=== PATIENT | female | born 1970 | race Caucasian/White ===

== ENCOUNTER 2022-02-20 05:22 | Inpatient (IN) | payer OTHER ==
[2022-02-12 14:59] LABS: BASOPHILS % (AUTO) 0.8 % (0-1); EOSINOPHILS # (AUTO) 0.2 X10'3 (0-0.9); EOSINOPHILS % (AUTO) 3.4 % (0-6); LYMPHOCYTES # (AUTO) 1.5 X10'3 (1.1-4.8); LYMPHOCYTES % (AUTO) 28.1 % (21-51); MEAN CORPUSCULAR HGB CONC 33.7 g/dL (33.0-36.5); MEAN PLATELET VOLUME 7.4 FL (7.4-10.4); MONOCYTES # (AUTO) 0.3 X10'3 (0-0.9); MONOCYTES % (AUTO) 6.4 % (2-12); NEUTROPHILS # (AUTO) 3.3 X10'3 (1.8-7.7); NEUTROPHILS % (AUTO) 61.3 % (42-75); PRE OP HEMATOCRIT 42.5 % (35.0-45.0); PRE OP HEMOGLOBIN 14.3 g/dL (12.0-16.0); PRE OP PLATELET COUNT 289 X10'3 (140-440); RED BLOOD COUNT 4.48 X10'6 (4.20-5.60); RED CELL DISTRIBUTION WIDTH 14.4 % (11.5-14.5)
[2022-02-12 15:06] LABS: CLARITY,URINE CLEAR (Clear); COLOR,URINE YELLOW (Yellow); GLUCOSE, URINE NEGATIVE (Neg); KETONES,URINE NEGATIVE (Neg); LEUKOCYTE ESTERASE ,URINE NEGATIVE (Neg); NITRITES, URINE NEGATIVE (Neg); OCCULT BLOOD,URINE NEGATIVE (Neg); PROTEIN,URINE NEGATIVE (Neg); UROBILINOGEN,URINE 0.2 E.U/dL (0.2-1.0)
[2022-02-12 15:07] LABS: UA COLLECTION TYPE CLN CATCH MIDSTREAM
[2022-02-12 15:13] LABS: ALBUMIN 3.8 G/DL (3.4-5.0); ALKALINE PHOSPHATASE 91 IU/L (46-116); BLOOD UREA NITROGEN 24 MG/DL (7-18); CALCIUM 9.3 MG/DL (8.5-10.1); CHLORIDE 103 MMOL/L (99-107); CREATININE 1.09 MG/DL (0.40-0.90); PRE OP ALT 35 U/L (30-65); PRE OP ANION GAP 9 (8-16); PRE OP AST 18 U/L (10-37); PRE OP BILIRUB, TOTAL 0.3 MG/DL (0.0-1.0); PRE OP GLUCOSE 102 MG/DL (70-104); PRE OP POTASSIUM 4.1 MMOL/L (3.4-5.1); PRE OP SODIUM 142 MMOL/L (135-145); TOTAL CARBON DIOXIDE 30.2 MMOL/L (24-32); TOTAL PROTEIN 7.6 G/DL (6.4-8.2); eGFR 53 ML/MIN
[~2022-02-20] VITALS: Ht 157.5 cm; Wt 97.0 kg
[2022-02-20] VITALS (22 sets, daily range): BP systolic 91–133; BP diastolic 42–87
[~2022-02-20 05:22] MED LIST: CETI-194 PO; DULO60CA59 PO; GABA300C PO; HYDR-3965 PO; LISI1TAB49 PO; ringers solution, lacted 1,000 ML IV SCH
[2022-02-20] MEDS ORDERED: vancomycin 1,500 MG in NS 300ml IV soln IV ONE (05:30)
[2022-02-20] MEDS ORDERED: ceFAZolin inj. 2,000 MG in dextrose 5%-water 100 ML IV ONE (05:30)
[2022-02-20] MEDS ORDERED: famotidine 20mg tablet PO ONE (05:30)
[2022-02-20] MEDS ORDERED: acetaminophen 325mg tablet PO ONE (05:30)
[2022-02-20] MEDS ORDERED: celeCOXIB 100mg capsule PO ONE (05:30)
[2022-02-20] MEDS ORDERED: oxyCODONE SR 10mg (sust. release) tab -2 tabs (20mg) PO ONE (05:30)
[2022-02-20] MEDS ORDERED: gabapentin 300mg capsule PO ONE (05:30)
[2022-02-20] MEDS ORDERED: metoclopramide 5 mg/ml inj IV ONE (05:30)
[2022-02-20] MEDS ORDERED: LIDOcaine 1% (10mg/ml) 2ml vial ONE (05:35)
[2022-02-20] MEDS ORDERED: tranexamic acid inj. 1,000 MG in normal saline 100ml IV soln 90 ML IV ONE (06:00)
[2022-02-20] MEDS ORDERED: HYDROmorphone 1 mg/ml syringe IV PRN (06:50)
[2022-02-20] MEDS ORDERED: bisacodyl 10mg suppository rectal RC PRN (06:50)
[2022-02-20] MEDS ORDERED: magnesium hydroxide 30ml (MOM) UD suspension PO PRN (06:50)
[2022-02-20] MEDS ORDERED: acetaminophen 325mg tablet PO PRN (06:50)
[2022-02-20] MEDS ORDERED: ondansetron/PF 4mg/2ml inj IV PRN ×2 (06:50→08:25)
[2022-02-20] MEDS ORDERED: naloxone 0.4 mg/ml inj IV PRN (06:50)
[2022-02-20] MEDS ORDERED: diphenhydrAMINE 25mg capsule PO PRN ×2 (06:50)
[2022-02-20] MEDS ORDERED: HYDROcodone/acetaminophen 10/325mg tab PO PRN (06:50)
[2022-02-20] MEDS ORDERED: HYDROmorphone inj. 0.5 MG/0.5 ML DISP.SYRIN IV PRN (06:50)
[2022-02-20] MEDS ORDERED: epiNEPHrine 1 mg/ml inj ONE (07:00)
[2022-02-20] MEDS ORDERED: ketorolac trometh. 30mg/ml inj. ONE (07:00)
[2022-02-20] MEDS ORDERED: ROPIVAcaine 0.5% (5mg/ml) 30ml vial ONE (07:01)
[2022-02-20] MEDS ORDERED: vancomycin 1,000mg inj ONE (07:01)
[2022-02-20] MEDS ORDERED: cloNIDine hcl/PF 100mcg/ml inj ONE (07:01)
[2022-02-20] MEDS ORDERED: fentaNYL/PF 50MCG/1 ML 2ML syringe ONE (07:07)
[2022-02-20] MEDS ORDERED: MIDAZolam 1mg/ml 10ml vial ONE (07:07)
[2022-02-20] MEDS ORDERED: multivitamins, therapeutics tablet PO SCH (08:00)
[2022-02-20] MEDS ORDERED: gabapentin 300mg capsule PO SCH (08:00)
[2022-02-20] MEDS ORDERED: ascorbic acid 500mg tablet PO SCH (08:00)
[2022-02-20] MEDS ORDERED: HYDROchlorothiazide 12.5mg capsule PO SCH (08:00)
[2022-02-20] MEDS ORDERED: lisinopril 10 MG tablet PO SCH (08:00)
[2022-02-20] MEDS ORDERED: cetirizine 10mg tablet PO SCH (08:00)
[2022-02-20] MEDS ORDERED: ePHEDrine 50MG/ML INJ. ONE (08:09)
[2022-02-20] MEDS ORDERED: morphine 4 MG/ML inj SYRINge IV PRN (08:25)
[2022-02-20] MEDS ORDERED: ringers solution, lacted 1,000 ML IV SCH (08:25)
[2022-02-20] MEDS ORDERED: proCHLORperazine 10 MG/2 ml inj IV PRN (08:25)
[2022-02-20] MEDS ORDERED: morphine 2 MG/ML inj. syringe IV PRN (08:25)
[2022-02-20] MEDS ORDERED: meperidine/PF 25mg/ml syringe IV PRN ×3 (08:25)
[2022-02-20] MEDS ORDERED: aspirin 325mg tablet PO SCH (08:30)
--- NOTE | 2022-02-20 08:41 | NUR ---
Received from OR via BED, accompanied by Anesthesiologist DR GREENFIELD and report given by Anesthesiologist AND CHAUFFEUR. PT DROWSY, DENIES PAIN, RIGHT HIP/UPPER THIGH W/STEVE DRAIN DRESSING CDI W/GREEN LIGHT ILLUMINATION, LEG BRACE ON, POWDER PACK PLACED ON RIGHT HIP. DERMATOME LEVEL T-12 - L-1. Addendum: 02/20/22 at 0942 by Eduarda Hardy RN Amended: Links added.
[2022-02-20] MEDS ORDERED: tranexamic acid inj. 1,000 MG in normal saline 100ml IV soln 100 ML IV ONE (11:45)
--- NOTE | 2022-02-20 11:51 | NUR ---
Report called to receiving nurse. Transferred via BED, NO Belongings. CALLED AND NOTIFIED PTS ARRIVAL TO ROOM [id number] BY ABBIE. Special Issues communicated to receiving nurse. YES. Addendum: 02/20/22 at 1202 by Eduarda Hardy RN Amended: Links added.
[2022-02-20] MEDS: potassium cl 20mEq in 1/2 NS 1,000 ML IV SCH ×2 (14:35→14:41)
[2022-02-20] MEDS: HYDROcodone/acetaminophen 10/325mg tab PO PRN ×2 (14:55→19:34)
[2022-02-20] MEDS ORDERED: cefazolin/dext.iso 2gm/100ml 100 ML IV SCH (16:00)
[2022-02-20] MEDS ORDERED: VANCOMYCIN 1,500MG inj. 1,500 MG in dextrose 5% water 500ml 500 ML IV SCH (18:00)
--- NOTE | 2022-02-20 18:00 | NUR ---
Report to Archie Culver
--- NOTE | 2022-02-20 19:30 | NUR ---
Pt was wheeled down in a wheelchair by Shaunna with her partner to be discharged. IV was taken out intact and D/C papers were signed. Winlock given before left and pt refused other 2000 meds.
[2022-02-20] MEDS ORDERED: sennosides 8.6mg tablet PO SCH (21:00)
[2022-02-20] MEDS ORDERED: duloxetine 30mg CAPSULE.DR PO SCH (21:00)
[2022-02-21] MEDS ORDERED: celeCOXIB 100mg capsule PO SCH (20:00)
== END 2022-02-20 19:00 | disposition home or self-care (01) | DRG 470 ==
LOC: PAS 05:22 → ORTHO 4S 06:49
PROVIDERS: ADMIT Orthopaedic Surgery; ATTEND Orthopaedic Surgery
PROC: 0SR906Z Replacement of Right Hip Joint with Oxidized Zirconium on Polyethylene Synthetic Substitute, Open Approach (ICD-10-PCS; principal; 2022-02-20 07:11)
DX: M16.11 Unilateral primary osteoarthritis, right hip (principal); Z20.822 Contact with and (suspected) exposure to COVID-19; Z79.82 Long term (current) use of aspirin
CPT/HCPCS: Z7506; Z7508; 36415; 72170; 80053; 81003; 82948; 85025; 85610; 85730; 86885; 86900; 86901; 87081; 93005; 97110; 97116; 97161; 97530; A7000; C1776; G0378; J0171; J0690; J0735; J1885; J2250; J2765; J2795; J3010; J3370; J3480; J3490; J7040; J7060; J7120; U0003; U0005